=== PATIENT | male | born 1945 | race Caucasian/White ===

== ENCOUNTER 2016-09-10 07:42 | Day surgery (SDC) | payer MEDICARE, OTHER ==
--- NOTE | ~2016-09-10 | EGD ---
EGD REPORT [facility] [address] [address] NAME: LEAH CUEVA : [birth year] STATUS : REG [facility]#: [id number] AGE: 70 ADM/REG DATE : 09/10/16 MR#: [id number] REPORT SERV DATE: 09/10/16 DICTATED BY: DATE: REPORT STATUS : Draft TRANSCRIBED BY: [employer] DATE: 09/10/16 [facility] Patient Name: Leah Cueva Date of : 1945 Attending MD: ERIKA PIÑA MD Procedure Date No Time: 09/10/2016 Procedure: Colonoscopy Indications: High risk colon cancer surveillance: Personal history of colon cancer Referring MD: Vamshi Petty Medicines: Monitored Anesthesia Care Complications: No immediate complications. Procedure: Pre-Anesthesia Assessment: - ASA Grade Assessment: II - A patient with mild systemic disease. After I obtained informed consent, the scope was passed under direct vision. Throughout the procedure, the patient's blood pressure, pulse, and oxygen saturations were monitored continuously. The PCF [id number] was introduced through the anus and advanced to the cecum, identified by appendiceal orifice and ileocecal valve. The colonoscopy was performed without difficulty. The patient tolerated the procedure well. The quality of the bowel preparation was excellent. Findings: The perianal and digital rectal examinations were normal. There was evidence of a prior end-to-side colo-colonic anastomosis at 40 cm proximal to the anus. This was patent. This was characterized by healthy appearing mucosa. Three sessile polyps were found in the ascending colon and in the cecum. The polyps were 3 to 7 mm in size. These polyps were removed with a cold snare. Resection and retrieval were complete. Three sessile polyps were found in the transverse colon. The polyps were diminutive in size. These polyps were removed with a cold biopsy forceps. Resection and retrieval were complete. Four sessile polyps were found in the transverse colon. The polyps were small in size. These polyps were removed with a cold snare. Resection and retrieval were complete. A sessile polyp was found in the sigmoid colon. The polyp was diminutive in size. The polyp was removed with a cold biopsy forceps. Resection and retrieval were complete. No other significant abnormalities were identified in a careful examination of the remainder of the colon. There is no endoscopic evidence of mass, ulcerations or angioectasia in EGD REPORT [address] [place]. [address] NAME: LEAH CUEVA : [birth year] STATUS : REG [facility]#: [id number] AGE: 70 ADM/REG DATE : 09/10/16 MR#: [id number] REPORT SERV DATE: 09/10/16 DICTATED BY: DATE: REPORT STATUS : Draft TRANSCRIBED BY: [employer] DATE: 09/10/16 the entire colon. No additional abnormalities were found on retroflexion. Impression: - Patent end-to-side colo-colonic anastomosis. - Three 3 to 7 mm polyps in the ascending colon and in the cecum. Resected and retrieved. - Three diminutive polyps in the transverse colon. Resected and retrieved. - Four small polyps in the transverse colon. Resected and retrieved. - Diminutive polyp in the sigmoid, removed, resected, retrieved. Recommendation: - Patient has a contact number available for emergencies. The signs and symptoms of potential delayed complications were discussed with the patient. Return to normal activities tomorrow. Written discharge instructions were provided to the patient. - Return to previous diet. - Discharge patient to home. - Continue present medications. - Await pathology results. - Repeat colonoscopy in 3 years for surveillance. Procedure Code(s): --- Professional --- 04317, Colonoscopy, flexible, proximal to splenic flexure; with removal of tumor(s), polyp(s), or other lesion(s) by snare technique 73177, 59, Colonoscopy, flexible, proximal to splenic flexure; with biopsy, single or multiple Diagnosis Code(s): --- Professional --- Z98.0, Intestinal bypass and anastomosis status D12.3, Benign neoplasm of transverse colon D12.2, Benign neoplasm of ascending colon D12.0, Benign neoplasm of cecum Z85.038, Personal history of other malignant neoplasm of large intestine CPT copyright 2013 [employer]. All rights reserved. The codes documented in this report are preliminary and upon fire management officer review may be revised to meet current compliance requirements. ERIKA PIÑA MD EGD REPORT [facility] [address] [place] [address] NAME: LEAH CUEVA : [birth year] STATUS : [facility] [place]#: [id number] AGE: 70 ADM/REG DATE : 09/10/16 MR#: [id number] REPORT SERV DATE: 09/10/16 DICTATED BY: DATE: REPORT STATUS : Draft TRANSCRIBED BY: [employer] DATE: 09/10/16 09/10/2016 10:35 AM This report has been signed electronically. Number of Addenda: 0 Note Initiated On: 09/10/2016 10:03 AM Scope Withdrawal Time 0 hours 16 minutes 31 seconds [address] [place] [address]
[~2016-09-10 07:42] MED LIST: ACET500CAP PO; ALKA-SELTZER PLUS; BEN25 PO; C5; CLARIT10 PO; FISH-EPA1000 MG PO; FLONASE NAS; GLUCCHONDR PO; MULTIPLE VIT PO; PCET PO; PROTONIX20 MG PO; SYN1 PO; VITA10 PO; VITAMIN B-121000 MC1 SL; VITC500 PO; [UNRECOGNIZED DRUG - OTHER] OP; [UNRECOGNIZED DRUG - REMARK] PO
== END 2016-09-10 23:59 | disposition home or self-care (01) ==
LOC: DMU 07:42
PROVIDERS: Internal Medicine Gastroenterology
PROC: 0DBL8ZZ Excision of Transverse Colon, Via Natural or Artificial Opening Endoscopic (ICD-10-PCS; 2016-09-10)
PROC: 0DBH8ZZ Excision of Cecum, Via Natural or Artificial Opening Endoscopic (ICD-10-PCS; 2016-09-10)
PROC: 0DBL8ZZ Excision of Transverse Colon, Via Natural or Artificial Opening Endoscopic (ICD-10-PCS; principal; 2016-09-10 11:00)
PROC: 0DBK8ZZ Excision of Ascending Colon, Via Natural or Artificial Opening Endoscopic (ICD-10-PCS; 2016-09-10 11:00)
DX: Z12.11 Encounter for screening for malignant neoplasm of colon (principal); D12.0 Benign neoplasm of cecum; D12.2 Benign neoplasm of ascending colon; D12.5 Benign neoplasm of sigmoid colon; D12.3 Benign neoplasm of transverse colon; K21.9 Gastro-esophageal reflux disease without esophagitis; Z85.038 Personal history of other malignant neoplasm of large intestine; Z86.010 Personal history of colon polyps; Z87.891 Personal history of nicotine dependence; Z90.49 Acquired absence of other specified parts of digestive tract; Z79.51 Long term (current) use of inhaled steroids; Z98.890 Other specified postprocedural states; Z79.899 Other long term (current) drug therapy
CPT/HCPCS: 88305